=== PATIENT | male | born 1970 | race Caucasian/White ===

== ENCOUNTER → 2018-11-02 | Outpatient (CLI) | payer MEDICAID ==
[~2018-11-02] MED LIST: ALBU18HF INH; ALEN70TA6 PO; ERGO500017 PO; FLUO20CA19 PO; HYDR-3240 PO; HYDR25TA11 PO; LIDO35.46 TP; MELO15TA24 PO; METH500T7 PO; NICO-487 TD; PRAZ2CAP2 PO; TRAZ-137 PO
[2018-11-02 13:55] LABS: MICROSCOPIC NOT IND
[2018-11-02 13:59] LABS: CULTURE INDICATED? NO
[2018-11-02 14:00] LABS: BASOPHILS # (AUTO) 0.06 x10^3/uL (0-0.1); BASOPHILS % (AUTO) 1 % (0-1); EOSINOPHILS # (AUTO) 0.13 x10^3/uL (0-0.4); EOSINOPHILS % (AUTO) 2 % (1-7); LYMPHOCYTES # (AUTO) 2.69 x10^3/uL (1-3.4); LYMPHOCYTES % (AUTO) 35 % (22-44); MD NO; MEAN CORPUSCULAR HEMOGLOBIN 28.3 pg (27.5-34.5); MEAN CORPUSCULAR HGB CONC 32.9 g/dL (33.2-36.2); MEAN CORPUSCULAR VOLUME 86.2 fL (81-97); MEAN PLATELET VOLUME 8.5 fL (7.4-10.4); MONOCYTES # (AUTO) 0.65 x10^3/uL (0.2-0.8); MONOCYTES % (AUTO) 8 % (2-9); NEUTROPHILS # (AUTO) 4.27 x10^3/uL (1.8-6.8); NEUTROPHILS % (AUTO) 55 % (42-75); PLATELET COUNT 368 x10^3/uL (130-400); RED BLOOD COUNT 5.16 x10^6/uL (4.38-5.82); RED CELL DISTRIBUTION WIDTH 14.6 % (9.4-14.8)
[2018-11-02 14:18] LABS: ALANINE AMINOTRANSFERASE 21 U/L (12-78); ALBUMIN 3.7 g/dL (3.4-5.0); ANION GAP 4 mmol/L (5-15); CALCIUM 8.8 mg/dL (8.5-10.1); CHLORIDE 107 mmol/L (98-107)
[2018-11-02 14:20] LABS: ALKALINE PHOSPHATASE 73 U/L (45-117); BILIRUBIN,TOTAL 0.2 mg/dL (0.2-1.0); CREATININE 1.01 mg/dL (0.7-1.3); TOTAL PROTEIN 7.3 g/dL (6.4-8.2)
== END | disposition home or self-care (01) ==
LOC: STAR 12:40
PROVIDERS: ATTEND Orthopaedic Surgery
DX: Z01.818 Encounter for other preprocedural examination (principal); M16.11 Unilateral primary osteoarthritis, right hip
CPT/HCPCS: 36415; 80053; 81003; 85025; 87081; 87806; 93005; G0475

== ENCOUNTER 2018-11-09 10:10 | Inpatient (IN) | payer MEDICAID ==
[2018-11-02 13:08] VITALS: BP 126/92
[~2018-11-09] VITALS: Ht 175.3 cm; Wt 90.3 kg
[2018-11-09] MEDS ORDERED: ACETAMINOPHEN 500 MG TABLET PO ONE (10:30)
[2018-11-09] MEDS ORDERED: DIAZEPAM 5 MG TABLET PO ONE (10:30)
[2018-11-09] MEDS ORDERED: OXYcodone IR 5MG TABLET PO ONE (10:30)
[2018-11-09] MEDS ORDERED: VANCOMYCIN PER PHARMACY MC STA (10:32)
[2018-11-09] MEDS ORDERED: LACTATED RINGERS 1,000 ML IV SCH (10:32)
[2018-11-09] MEDS ORDERED: FENTANYL PF 250 MCG/5ML ONE ×2 (10:57→13:17)
[2018-11-09] MEDS ORDERED: MIDAZOLAM 1 MG/ML, 2ML ONE (10:57)
[2018-11-09] MEDS ORDERED: VANCOMYCIN PMX 1GM/200ML 200 ML IV ONE (11:00)
[2018-11-09] MEDS ORDERED: GABAPENTIN 300 MG CAPSULE ONE (11:08)
[2018-11-09] MEDS ORDERED: GABAPENTIN 300 MG CAPSULE PO ONE (11:30)
[2018-11-09] MEDS ORDERED: KETOROLAC 60 MG/2 ML ONE (12:02)
[2018-11-09] MEDS ORDERED: ROPIvacaine/PF 0.2%, 20 ML ONE (12:02)
[2018-11-09] MEDS ORDERED: TRANEXAMIC ACID 100 MG/ML, 10ML ONE (12:02)
[2018-11-09] MEDS ORDERED: morphine SULFATE/PF 1 MG/ML, 10ML ONE (12:03)
[2018-11-09] MEDS ORDERED: SODIUM CHLORIDE 0.9% 100 ML ONE (12:03)
[2018-11-09] MEDS ORDERED: EPINEPHRINE 1 MG/ML, 1ML ONE (12:03)
[2018-11-09] MEDS ORDERED: BACITRACIN 50,000 UNIT ONE (12:03)
[2018-11-09] MEDS ORDERED: OXYcodone 5 MG/5 ML ORAL.SOL UDC PO PRN (12:30)
[2018-11-09] MEDS ORDERED: ZOLPIDEM 5MG TABLET PO PRN (12:30)
[2018-11-09] MEDS ORDERED: FENTANYL PF 100 MCG/2ML IV PRN (12:30)
[2018-11-09] MEDS ORDERED: morphine SULFATE 10 MG/ML, 1ML IVPush PRN (12:30)
[2018-11-09] MEDS: D5%-0.45% NACL 1,000 ML IV SCH ×3 (12:30→23:49)
[2018-11-09] MEDS ORDERED: LORazepam 2 MG/ML, 1ML IVPush PRN (12:30)
[2018-11-09] MEDS ORDERED: ONDANSETRON 2MG/ML, 2ML IV PRN (12:30)
[2018-11-09] MEDS ORDERED: MEPERIDINE/PF 25MG/0.5ML IVPush PRN (12:30)
[2018-11-09] MEDS ORDERED: ONDANSETRON 2MG/ML, 2ML IVPush PRN (12:30)
[2018-11-09] MEDS ORDERED: DIPHENHYDRAMINE 50 MG CAPSULE PO PRN (12:30)
[2018-11-09] MEDS ORDERED: ACETAMINOPHEN 325 MG TABLET PO PRN (12:30)
[2018-11-09] MEDS ORDERED: CEFAZOLIN 1,000 MG ONE (12:41)
[2018-11-09] MEDS ORDERED: DEXAMETHASONE 4 MG/ML, 1ML ONE (12:41)
[2018-11-09] MEDS ORDERED: ONDANSETRON 2MG/ML, 2ML ONE (12:41)
[2018-11-09] MEDS ORDERED: SUCCINYLCHOLINE 20 MG/ML, 10ML ONE (12:41)
[2018-11-09] MEDS ORDERED: PROPOFOL 10 MG/ML, 20ML ONE (12:41)
[2018-11-09] MEDS ORDERED: FENTANYL PF 100 MCG/2ML ONE ×2 (14:21→14:22)
[2018-11-09] MEDS ORDERED: OXYcodone 5 MG/5 ML ORAL.SOL UDC ONE (14:22)
[2018-11-09] MEDS ORDERED: HYDROmorphone 2 MG/ML, 1ML ONE (14:25)
[2018-11-09] MEDS ORDERED: MEPERIDINE/PF 25MG/ML,1ML ONE (14:25)
[2018-11-09] MEDS: HYDROmorphone 2 MG/ML, 1ML IVPush PRN ×4 (14:35→14:59)
[2018-11-09] MEDS ORDERED: HYDROcodone/APAP 5/325 TABLET PO PRN (16:30)
[2018-11-09] MEDS ORDERED: TRAZODONE 100MG TABLET PO PRN (16:30)
[2018-11-09] MEDS ORDERED: ALBUTEROL SULFATE 2.5 MG/3 ML NPPB PRN (16:30)
[2018-11-09] MEDS: OXYcodone/APAP 7.5/325MG TABLET PO PRN (17:59)
[2018-11-09] MEDS ORDERED: TRANEXAMIC ACID 1,000 MG in SODIUM CHLORIDE 0.9% 100 ML IV ONE (18:00)
[2018-11-09] MEDS: METHOCARBAMOL 500 MG TABLET PO PRN (18:04)
[2018-11-09 20:14] VITALS: BP 120/81
[2018-11-09] MEDS: CEFAZOLIN PMX 1GM/50ML 50 ML IVPB SCH (20:50)
[2018-11-09] MEDS: hydrOXyzine 50MG TABLET PO SCH (21:00)
[2018-11-09] MEDS: PRAZOSIN 2 MG CAPSULE PO SCH (21:55)
[2018-11-10] MEDS: METHOCARBAMOL 500 MG TABLET PO PRN (00:08)
[2018-11-10 00:14] VITALS: BP 104/63
[2018-11-10] MEDS: OXYcodone/APAP 7.5/325MG TABLET PO PRN ×5 (02:59→20:50)
[2018-11-10] MEDS: MELOXICAM 15 MG TABLET PO PRN (02:59)
[2018-11-10] MEDS: D5%-0.45% NACL 1,000 ML IV SCH ×4 (03:56→19:18)
[2018-11-10 04:02] VITALS: BP 105/70
[2018-11-10] MEDS: CEFAZOLIN PMX 1GM/50ML 50 ML IVPB SCH ×2 (05:54→13:53)
[2018-11-10] MEDS: hydrOXyzine 50MG TABLET PO SCH ×3 (07:41→20:51)
[2018-11-10] MEDS: FLUOXETINE HCL 20 MG CAPSULE PO SCH (07:41)
[2018-11-10] MEDS: NICOTINE 21 MG/24 HR PATCH.TD24 TD SCH (07:42)
[2018-11-10 08:17] VITALS: BP 111/76
[2018-11-10] MEDS ORDERED: VANCOMYCIN PMX 1GM/200ML 200 ML IVPB ONE (12:00)
[2018-11-10 12:17] VITALS: BP 104/70
[2018-11-10] MEDS: ASPIRIN 325 MG TABLET EC PO SCH (17:04)
[2018-11-10 18:43] VITALS: BP 96/56
[2018-11-10] MEDS: DOCUSATE 100 MG CAPSULE PO SCH (20:50)
[2018-11-10] MEDS: PRAZOSIN 2 MG CAPSULE PO SCH (20:50)
[2018-11-11 03:09] VITALS: BP 106/69
[2018-11-11] MEDS: OXYcodone/APAP 7.5/325MG TABLET PO PRN ×3 (03:56→12:25)
[2018-11-11] MEDS: MELOXICAM 15 MG TABLET PO PRN ×2 (03:56→12:25)
[2018-11-11] MEDS: D5%-0.45% NACL 1,000 ML IV SCH ×4 (05:00→15:00)
[2018-11-11] MEDS: ASPIRIN 325 MG TABLET EC PO SCH (07:50)
[2018-11-11] MEDS: FLUOXETINE HCL 20 MG CAPSULE PO SCH (07:50)
[2018-11-11] MEDS: NICOTINE 21 MG/24 HR PATCH.TD24 TD SCH (07:50)
[2018-11-11] MEDS: DOCUSATE 100 MG CAPSULE PO SCH (07:51)
[2018-11-11] MEDS: hydrOXyzine 50MG TABLET PO SCH (07:52)
[2018-11-11 08:00] VITALS: BP 112/80
[2018-11-11 12:10] VITALS: BP 102/70
[2018-11-12] MEDS ORDERED: ALENDRONATE 70 MG TABLET PO SCH (06:30)
[2018-11-12] MEDS ORDERED: ERGOCALCIFEROL 50,000 UNIT CAPSULE PO SCH (09:00)
== END 2018-11-11 15:55 | disposition home or self-care (01) | DRG 470 ==
LOC: INTOOBSV 10:10 → ORIP 10:10 → OBSVTOIN 10:35 → 4NOR 15:50 → DCLOUNGE 11-11 15:41
PROVIDERS: ADMIT Orthopaedic Surgery; ATTEND Orthopaedic Surgery
PROC: 0SR906Z Replacement of Right Hip Joint with Oxidized Zirconium on Polyethylene Synthetic Substitute, Open Approach (ICD-10-PCS; principal; 2018-11-09 12:30)
DX: M16.11 Unilateral primary osteoarthritis, right hip (principal); M87.9 Osteonecrosis, unspecified; J44.9 Chronic obstructive pulmonary disease, unspecified; Z88.8 Allergy status to other drugs, medicaments and biological substances
CPT/HCPCS: 27130; 36415; 73501; G8978; G8979; G8980; 85018; 86850; 86900; 96365; 96366; 96367; 96375; C1713; G0378; J0171; J0690; J1100; J1170; J1885; J2175; J2250; J2274; J2405; J2704; J2795; J3010; J3370; C1776; J0330; J2060; J7120

== ENCOUNTER 2019-03-08 05:56 | Inpatient (IN) | payer MEDICAID ==
[2019-03-05 11:52] LABS: BASOPHILS # (AUTO) 0.07 x10^3/uL (0-0.1); BASOPHILS % (AUTO) 1 % (0-1); EOSINOPHILS # (AUTO) 0.13 x10^3/uL (0-0.4); EOSINOPHILS % (AUTO) 1 % (1-7); LYMPHOCYTES # (AUTO) 2.88 x10^3/uL (1-3.4); LYMPHOCYTES % (AUTO) 27 % (22-44); MD NO; MEAN CORPUSCULAR HEMOGLOBIN 28.8 pg (27.5-34.5); MEAN CORPUSCULAR HGB CONC 32.9 g/dL (33.2-36.2); MEAN CORPUSCULAR VOLUME 87.5 fL (81-97); MEAN PLATELET VOLUME 8.9 fL (7.4-10.4); MONOCYTES # (AUTO) 0.63 x10^3/uL (0.2-0.8); MONOCYTES % (AUTO) 6 % (2-9); NEUTROPHILS # (AUTO) 7.11 x10^3/uL (1.8-6.8); NEUTROPHILS % (AUTO) 66 % (42-75); PLATELET COUNT 310 x10^3/uL (130-400); RED BLOOD COUNT 5.33 x10^6/uL (4.38-5.82); RED CELL DISTRIBUTION WIDTH 15.4 % (9.4-14.8)
[2019-03-05 11:55] LABS: MICROSCOPIC AUTO
[2019-03-05 11:59] LABS: CULTURE INDICATED? YES
[2019-03-05 12:10] LABS: ALANINE AMINOTRANSFERASE 21 U/L (12-78); ALBUMIN 4.1 g/dL (3.4-5.0); ANION GAP 6 mmol/L (5-15); CHLORIDE 107 mmol/L (98-107); CREATININE 1.05 mg/dL (0.7-1.3)
[2019-03-05 12:12] LABS: ALKALINE PHOSPHATASE 84 U/L (45-117); BILIRUBIN,TOTAL 0.3 mg/dL (0.2-1.0); TOTAL PROTEIN 7.9 g/dL (6.4-8.2)
[~2019-03-08] VITALS: Ht 175.3 cm; Wt 94.0 kg
[~2019-03-08 05:56] MED LIST changes: +FLUO20CA8 PO; +HYDR-3307 PO; +METH750T2 PO
[2019-03-08] MEDS ORDERED: VANCOMYCIN PMX 1GM/200ML 200 ML IV ONE (06:30)
[2019-03-08] MEDS ORDERED: KETOROLAC 60 MG/2 ML ONE (06:39)
[2019-03-08] MEDS ORDERED: TRANEXAMIC ACID 100 MG/ML, 10ML ONE (06:39)
[2019-03-08] MEDS ORDERED: LACTATED RINGERS 1,000 ML IV SCH (06:39)
[2019-03-08] MEDS ORDERED: morphine SULFATE/PF 1 MG/ML, 10ML ONE (06:40)
[2019-03-08] MEDS ORDERED: SODIUM CHLORIDE 0.9% 50 ML ONE (06:40)
[2019-03-08] MEDS ORDERED: ROPIvacaine/PF 0.5%, 20 ML ONE (06:40)
[2019-03-08] MEDS ORDERED: EPINEPHRINE 1 MG/ML, 1ML ONE (06:40)
[2019-03-08] MEDS ORDERED: BACITRACIN 50,000 UNIT ONE (06:41)
[2019-03-08] MEDS ORDERED: GABAPENTIN 300 MG CAPSULE PO STA (07:16)
[2019-03-08] MEDS ORDERED: ACETAMINOPHEN 500 MG TABLET PO STA (07:16)
[2019-03-08] MEDS ORDERED: GABAPENTIN 300 MG CAPSULE ONE (07:19)
[2019-03-08] MEDS ORDERED: ACETAMINOPHEN 500 MG TABLET ONE (07:19)
[2019-03-08] MEDS: D5%-0.45% NACL 1,000 ML IV SCH ×3 (07:21→23:21)
[2019-03-08] MEDS ORDERED: FENTANYL PF 250 MCG/5ML ONE (07:24)
[2019-03-08] MEDS ORDERED: MIDAZOLAM 1 MG/ML, 2ML ONE (07:24)
[2019-03-08] MEDS ORDERED: PROCHLORPERAZINE 5 MG/ML, 2ML IV PRN (07:30)
[2019-03-08] MEDS ORDERED: MEPERIDINE/PF 25MG/0.5ML IVPush PRN (07:30)
[2019-03-08] MEDS ORDERED: DIPHENHYDRAMINE 25 MG CAPSULE PO PRN (07:30)
[2019-03-08] MEDS ORDERED: hydrALAzine 20 MG/ML, 1ML IV PRN (07:30)
[2019-03-08] MEDS ORDERED: PROMETHAZINE 25 MG/ML, 1ML IV PRN (07:30)
[2019-03-08] MEDS ORDERED: METOPROLOL 1 MG/ML, 5ML IV PRN (07:30)
[2019-03-08] MEDS ORDERED: morphine SULFATE 10 MG/ML, 1ML IVPush PRN (07:30)
[2019-03-08] MEDS ORDERED: ACETAMINOPHEN 325 MG TABLET PO PRN (07:30)
[2019-03-08] MEDS ORDERED: OXYcodone 5 MG/5 ML ORAL.SOL UDC PO PRN (07:30)
[2019-03-08] MEDS ORDERED: LABETALOL 5MG/ML, 20ML IV PRN (07:30)
[2019-03-08] MEDS ORDERED: HALOPERIDOL 5 MG/ML IV PRN (07:30)
[2019-03-08] MEDS ORDERED: LORazepam 2 MG/ML, 1ML IVPush PRN (07:30)
[2019-03-08] MEDS ORDERED: CEFAZOLIN PMX 2GM/50ML 50 ML IVPB SCH (07:30)
[2019-03-08] MEDS ORDERED: ONDANSETRON 2MG/ML, 2ML IVPush PRN (07:30)
[2019-03-08] MEDS ORDERED: DIPHENHYDRAMINE 50 MG/ML, 1ML IVPush PRN (07:30)
[2019-03-08] MEDS ORDERED: ROPIvacaine/PF 0.2%, 20 ML ONE (08:04)
[2019-03-08] MEDS ORDERED: NEOSTIGMINE 1 MG/ML, 10ML ONE (08:50)
[2019-03-08] MEDS ORDERED: SUCCINYLCHOLINE 20 MG/ML, 10ML ONE (08:50)
[2019-03-08] MEDS ORDERED: DEXAMETHASONE 4 MG/ML, 1ML ONE (08:50)
[2019-03-08] MEDS ORDERED: ONDANSETRON 2MG/ML, 2ML ONE (08:50)
[2019-03-08] MEDS ORDERED: PROPOFOL 10 MG/ML, 20ML ONE (08:50)
[2019-03-08] MEDS ORDERED: GLYCOPYRROLATE 0.2MG/1ML, 5ML ONE (08:50)
[2019-03-08] MEDS ORDERED: ROCURONIUM 10MG/ML,5ML ONE (08:50)
[2019-03-08] MEDS ORDERED: CEFAZOLIN 1,000 MG ONE (08:50)
[2019-03-08] MEDS ORDERED: FENTANYL PF 100 MCG/2ML ONE ×2 (09:13→09:22)
[2019-03-08] MEDS ORDERED: HYDROmorphone 2 MG/ML, 1ML ONE ×2 (09:22→10:03)
[2019-03-08] MEDS ORDERED: OXYcodone 5 MG/5 ML ORAL.SOL UDC ONE (09:22)
[2019-03-08] MEDS: HYDROmorphone 2 MG/ML, 1ML IVPush PRN ×5 (09:24→10:05)
[2019-03-08] MEDS: FENTANYL PF 100 MCG/2ML IV PRN ×2 (09:29→09:39)
[2019-03-08] MEDS ORDERED: VANCOMYCIN PMX 1GM/200ML 200 ML IVPB ONE (11:00)
[2019-03-08] MEDS ORDERED: TRANEXAMIC ACID 1,000 MG in SODIUM CHLORIDE 0.9% 100 ML IV ONE ×3 (11:00→13:30)
[2019-03-08] MEDS ORDERED: ALBUTEROL SULFATE 2.5 MG/3 ML HHN PRN (11:30)
[2019-03-08 11:58] VITALS: BP 90/56
[2019-03-08] MEDS ORDERED: METHOCARBAMOL 750 MG TABLET PO PRN (12:30)
[2019-03-08] MEDS: OXYcodone/APAP 7.5/325MG TABLET PO PRN ×3 (13:36→22:00)
[2019-03-08] MEDS: CEFAZOLIN PMX 2GM/50ML 50 ML IVPB SCH ×2 (15:38→23:27)
[2019-03-08] MEDS: hydrOXyzine 50MG TABLET PO SCH ×2 (15:45→21:27)
[2019-03-08 20:03] VITALS: BP 109/68
[2019-03-08] MEDS ORDERED: PRAZOSIN 2 MG CAPSULE PO SCH (21:00)
[2019-03-08] MEDS: ZOLPIDEM 5MG TABLET PO PRN ×2 (21:30→23:31)
[2019-03-09 00:15] VITALS: BP 95/60
[2019-03-09] MEDS: OXYcodone/APAP 7.5/325MG TABLET PO PRN ×4 (02:00→15:35)
[2019-03-09] MEDS: D5%-0.45% NACL 1,000 ML IV SCH ×3 (03:25→15:02)
[2019-03-09 04:04] VITALS: BP 93/57
[2019-03-09] MEDS ORDERED: ALENDRONATE 70 MG TABLET PO SCH (06:30)
[2019-03-09] MEDS ORDERED: VANCOMYCIN PMX 1GM/200ML 200 ML IV ONE (06:30)
[2019-03-09 07:10] VITALS: BP 105/66
[2019-03-09] MEDS: ASPIRIN 325 MG TABLET EC PO SCH ×2 (07:22→15:35)
[2019-03-09] MEDS: CEFAZOLIN PMX 2GM/50ML 50 ML IVPB SCH (08:37)
[2019-03-09] MEDS: hydrOXyzine 50MG TABLET PO SCH ×2 (08:37→15:35)
[2019-03-09] MEDS ORDERED: DOCUSATE 100 MG CAPSULE PO SCH (09:00)
[2019-03-09] MEDS ORDERED: FLUOXETINE HCL 20 MG CAPSULE PO SCH (09:00)
[2019-03-09] MEDS ORDERED: ERGOCALCIFEROL 50,000 UNIT CAPSULE PO SCH (11:30)
[2019-03-09 13:18] VITALS: BP 116/66
== END 2019-03-09 16:43 | disposition home or self-care (01) | DRG 470 ==
LOC: ORIP 05:56 → 4NOR 10:39 → DCLOUNGE 03-09 16:43
PROVIDERS: ADMIT Orthopaedic Surgery; ATTEND Orthopaedic Surgery
PROC: 0SRB0JZ Replacement of Left Hip Joint with Synthetic Substitute, Open Approach (ICD-10-PCS; principal; 2019-03-08 07:30)
DX: M87.852 Other osteonecrosis, left femur (principal); Z88.6 Allergy status to analgesic agent
CPT/HCPCS: 36415; 80053; 81001; 85018; 85025; 86850; 86900; 87081; 87086; 87806; 93005; C1713; G0378; J0171; J0690; J1100; J1170; J1885; J2250; J2274; J2405; J2704; J2710; J2795; J3010; J3370; C1776; G0475; J0330; J2270; J7120

== ENCOUNTER 2020-05-29 20:02 | Emergency (ER) | payer MEDICAID ==
[~2020-05-29] VITALS: Ht 175.3 cm; Wt 90.6 kg
[~2020-05-29 20:02] MED LIST changes: +FLUO20CA23 PO; -FLUO20CA8 PO; +HYDR-3246 PO; -HYDR-3307 PO; +HYDR-826 PO; -HYDR25TA11 PO; -TRAZ-137 PO; +TRAZ-175 PO
--- NOTE | 2020-05-29 20:44 | NUR ---
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
[2020-05-29] MEDS ORDERED: HYDROcodone/APAP 10/325 MG TABLET ONE (21:14)
[2020-05-29] MEDS ORDERED: METHOCARBAMOL 750 MG TABLET ONE (21:14)
[2020-05-29] MEDS ORDERED: METHOCARBAMOL 750 MG TABLET PO ONE (21:30)
[2020-05-29] MEDS ORDERED: HYDROcodone/APAP 10/325 MG TABLET PO ONE (21:30)
[2020-05-29 21:54] VITALS: BP 115/82
--- NOTE | 2020-05-29 21:54 | NUR ---
PT REPORTS PAIN IMPROVEMENT
== END 2020-05-29 22:03 ==
LOC: ED 21:57
DX: S39.012A Strain of muscle, fascia and tendon of lower back, initial encounter (principal); I10 Essential (primary) hypertension; F17.210 Nicotine dependence, cigarettes, uncomplicated; Z88.6 Allergy status to analgesic agent; X58.XXXA Exposure to other specified factors, initial encounter; Y93.89 Activity, other specified; Y92.89 Other specified places as the place of occurrence of the external cause; Y99.8 Other external cause status
CPT/HCPCS: 99283